=== PATIENT | male | born 1990 | race American Indian/Alaskan Native ===

== ENCOUNTER 2017-02-14 16:42 | Emergency (ER) | payer OTHER ==
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
[2017-02-14] MEDS ORDERED: MOTRIN PO ONE (19:32)
[2017-02-14 20:08] VITALS: BP 134/88
== END 2017-02-14 20:06 | disposition home or self-care (01) ==
LOC: ED 16:42
DX: S16.1XXA Strain of muscle, fascia and tendon at neck level, initial encounter (principal); V89.2XXA Person injured in unspecified motor-vehicle accident, traffic, initial encounter; Y93.89 Activity, other specified; Y99.9 Unspecified external cause status; Y92.410 Unspecified street and highway as the place of occurrence of the external cause
CPT/HCPCS: 99283